=== PATIENT | female | born 1995 | race Caucasian/White ===

== ENCOUNTER 2018-11-02 00:01 | Emergency (ER) | payer OTHER, SELFPAY ==
[2018-11-02 00:03] VITALS: BP 123/102; PULSE 108; RESP 22; TEMP 36.8; O2SAT 100; BMI 32.2
--- NOTE | 2018-11-02 00:57 | RAD_ITS ---
HISTORY: Shortness of breath XR Chest 2 Views TECHNIQUE: Frontal and lateral views of chest. # of images incl. paperwork: 2 COMPARISON: None. FINDINGS: Normal cardiomediastinal silhouette. Pulmonary vasculature appears normal. The lungs are clear. No pleural effusions or pneumothorax. No acute osseous abnormality of the thorax. RAD/Chest PA and Lateral IMPRESSION: 1. No acute cardiopulmonary disease. at 0322 Reported and signed by: Alonzo Sher MD Electronically Signed: Alonzo Sher MD at 3:21 EDT Tel , Service support ,
--- NOTE | 2018-11-02 00:57 | EKG12_ITS ---
Test Reason : PALPITATIONS Blood Pressure : / mmHG Vent. Rate : 092 BPM Atrial Rate : 092 BPM P-R Int : 138 ms QRS Dur : 104 ms QT Int : 380 ms P-R-T Axes : 070 083 035 degrees QTc Int : 469 ms Normal sinus rhythm Incomplete right bundle branch block Borderline ECG Confirmed by YUNIER BARRETO ([id number]), primer expeditor and drier CHUCHO RUBI ([id number]) on 11/05/2018 1:58:01 PM Referred By: LIANE Confirmed By:YUNIER BARRETO
[2018-11-02] MEDS: 0.9% Normal Saline 1,000 ML 999 ML IV (01:02)
[2018-11-02 02:34] VITALS: RESP 14
--- NOTE | 2018-11-02 02:57 | ED.VISSUMM ---
- ER Visit Summary Date of Service: 11/02/18 Chief Complaint: Syncope History of Present Illness: The patient is a 23 F who presents after syncopal episode. She does have a history of postural orthostatic tachycardia syndrome history of prior syncope. She states she was not feeling well yesterday. She today she was drinking water and felt better but she was drinking alcohol tonight and then began to not feel well walked to the vehicle and a syncopal episode. She felt short of breath afterwards. She felt like her heart was racing. She is had some nausea vomiting as well. She denies any chest pain. No fevers. No cough. No abdominal pain. Physical Examination: Heart rate 108 respiratory rate 22 blood pressure 123/102 No distress lying in bed Moist mucous membranes Heart regular rate and rhythm Lungs are clear to auscultation Abdomen soft Alert Test Results: EKG shows normal sinus rhythm at a rate of 92. Two-view chest x-ray on my review shows no acute process, radiology read pending. Emergency Department Course and Treatment: Syncope is likely related to her history of postural orthostatic tachycardia syndrome. This is likely exacerbated by her alcohol intoxication. She is sleeping comfortably after treatment with IV fluids. EKG and chest x-ray are unremarkable. I can be safely discharged home. Patient and family is in agreement. Treatment Plan: [] Disposition: Discharge Impression: Postural orthostatic tachycardia syndrome Alcohol intoxication Syncope This note was generated with [employer] dictation software. It may contain incorrect words, spelling, and punctuation that were not noted in review of the chart prior to signing ED Disposition - Plan for ED Patient: Referrals: [facility] Doctor,Out of [Primary Care Provider] -
[2018-11-02 02:59] VITALS: BP 120/88; PULSE 86; RESP 14; O2SAT 100
--- NOTE | 2018-11-02 03:01 | ED.DEP ---
ED Disposition - Plan for ED Patient: Instructions: Alcohol Intoxication, SYNCOPE, Unk Cause Referrals: [facility] Doctor,Out of [Primary Care Provider] -
[2018-11-02 03:07] VITALS: TEMP -17.7; TEMP 0; BMI 32.2
== END 2018-11-02 03:08 | disposition home or self-care (01) ==
PROVIDERS: Emergency Provider Emergency Medicine
DX: I49.8 Other specified cardiac arrhythmias (principal); F10.129 Alcohol abuse with intoxication, unspecified; Y90.9 Presence of alcohol in blood, level not specified; R55 Syncope and collapse
CPT/HCPCS: 36415; 71046; 93005; 96360; 99285; J7030; A4216; J2405